=== PATIENT | male | born 1985 | race Caucasian/White ===

== ENCOUNTER 2019-09-30 21:43 | Emergency (ER) | payer OTHER ==
[~2019-09-30] VITALS: Ht 188 cm; Wt 142.9 kg
[~2019-09-30 21:43] MED LIST: HYDHCL25 PO; Prednisone20 MG PO
[2019-09-30 22:41] LABS: BASOPHILS ABSOLUTE AUTO 0.03 K/mm3 (0.00-0.23); BASOPHILS PERCENT AUTO 0 % (0-2); EOSINOPHILS ABSOLUTE AUTO 0.28 K/mm3 (0.00-0.68); EOSINOPHILS PERCENT AUTO 3 % (0-6); Hematocrit 44.9 % (37.0-53.0); Hemoglobin 14.8 g/dL (13.5-17.5); IMMATURE GRAN ABSOLUTE AUTO 0.05 K/mm3 (0.00-0.10); IMMATURE GRAN PERCENT AUTO 1 % (0-1); LYMPHOCYTES ABSOLUTE AUTO 3.01 K/mm3 (0.84-5.20); LYMPHOCYTES PERCENT AUTO 35 % (21-46); MONOCYTES ABSOLUTE AUTO 0.77 K/mm3 (0.16-1.47); MONOCYTES PERCENT AUTO 9 % (4-13); Mean Corpuscular HGB 29.8 pg (26.0-34.0); Mean Corpuscular Volume 91 fL (80-100); Mean Platelet Volume 9.5 fL (9.1-12.4); NEUTROPHILS ABSOLUTE AUTO 4.53 K/mm3 (1.96-9.15); NEUTROPHILS PERCENT AUTO 52 % (41-73); Platelet Count 328 K/mm3 (150-400); RDW Coefficient Variation 11.8 % (11.7-14.2); RDW Standard Deviation 39.2 fL (35.1-46.3); Red Blood Cell Count 4.96 M/mm3 (4.30-5.90); White Blood Cell Count 8.67 K/mm3 (4.00-11.30)
[2019-09-30 22:59] LABS: Alanine Aminotransfer (ALT/SGP 50 U/L (12-78); Albumin, Blood 3.9 g/dL (3.4-5.0); Alk Phos 70 U/L (50-136); Anion Gap 6 mmol/L (6-16); Aspartate Aminotrans (AST/SGOT 20 U/L (12-37); Bilirubin, Total 0.2 mg/dL (0.1-1.0); Blood Urea Nitrogen 16 mg/dL (8-24); Bun/Creatinine Ratio 21.9 (12.0-20.0); CO2, Blood 27 mmol/L (21-32); Calcium, Blood 8.8 mg/dL (8.5-10.1); Chloride, Blood 108 mmol/L (98-108); Creatinine, Blood 0.73 mg/dL (0.60-1.20); Globulin, Blood 3.9 g/dL (2.2-4.0); Glomerular Filtration Rate >60 (60-); Glucose, Blood 169 mg/dL (70-99); Sodium, Blood 141 mmol/L (136-145); Total Protein, Blood 7.8 g/dL (6.4-8.2)
[2019-09-30] MEDS ORDERED: ARMODAFINIL250 MG PO (23:04)
[2019-10-01] MEDS ORDERED: Zithromax250 MG PO (09:34)
== END 2019-10-01 01:29 | disposition home or self-care (01) ==
LOC: ER 21:43
PROVIDERS: Emergency Medicine
DX: K42.9 Umbilical hernia without obstruction or gangrene (principal); Z88.5 Allergy status to narcotic agent; Z79.899 Other long term (current) drug therapy
CPT/HCPCS: 36415; 74176; 80053; 85025; 96361; 96374; 96375; 99284-25; A9270; A9270-GY; J2405; J3010; J7030

== ENCOUNTER 2022-06-20 06:00 | Day surgery (SDC) | payer OTHER ==
[~2022-06-20] VITALS: Ht 188 cm; Wt 126.7 kg
[~2022-06-20 06:00] MED LIST changes: +ARMODAFINIL250 MG PO; +Flonase 0.05% N16 GM; +Zithromax250 MG PO
--- NOTE | 2022-06-20 07:29 | NUR ---
PT BLOOD SUGAR ELEVATED AND AFTER DISCUSSION WITH DR. CUELLAR PT AND HIS HAVE DECIDED TO POSTPONE SURGERGY. IV DC'D INTACT. PT AMB OUT OF DEPARTMENT WITH HIS . NO ACUTE DISTRESS.
== END 2022-06-20 23:04 | disposition home or self-care (01) ==
LOC: ORSCMMR 06:00 → ORD 08:15 → ORSCMMR 08:15
DX: K42.9 Umbilical hernia without obstruction or gangrene (principal); Z53.9 Procedure and treatment not carried out, unspecified reason
CPT/HCPCS: 82947; J0690; J2250; J2704; J2795; J3010; J7120

== ENCOUNTER 2022-10-31 05:53 | Day surgery (SDC) | payer OTHER ==
[~2022-10-31] VITALS: Ht 188 cm; Wt 127.3 kg
[~2022-10-31 05:53] MED LIST changes: +GLIP5 PO; +INSULANI SC
[2022-10-31] MEDS ORDERED: CYMBALTA20 M1 PO (06:19)
[2022-10-31 07:38] LABS: Anion Gap Unable to Calculate mmol/L (6-16); Blood Urea Nitrogen 14 mg/dL (8-24); Bun/Creatinine Ratio 17.9 (12.0-20.0); CO2, Blood 28 mmol/L (21-32); Calcium, Blood 8.7 mg/dL (8.5-10.1); Chloride, Blood 111 mmol/L (98-108); Creatinine, Blood 0.78 mg/dL (0.60-1.20); Glomerular Filtration Rate 119 (60-); Glucose, Blood 132 mg/dL (70-99); Potassium, Blood 4.1 mmol/L (3.5-5.5); Sodium, Blood 138 mmol/L (136-145)
--- NOTE | 2022-10-31 09:38 | NUR ---
TO STEP RECIEVED REPORT AND PATIENT DRSSING ON ABDOMEN INTACT.
--- NOTE | 2022-10-31 09:49 | NUR ---
ASSUMED CARE DENIES PAIN OR NAUSEA DRSG CDI TOLERATING PO JOKING WITH STAFF
--- NOTE | 2022-10-31 10:36 | NUR ---
Patient up to Ambulate independently. Gait steady. Discharge instructions reviewed with patient. Patient verbalizes understanding. Copy given to patient to take home. Dressing to procedure site clean, dry, intact with no visible drainage, swelling, erythema or bruising noted. Discharged via wheelchair to private car for ride home.IV REMOVED CATH INTACT SITE CLEAR
== END 2022-10-31 22:46 | disposition home or self-care (01) ==
LOC: ORSCMMR 05:53 → ORD 07:30 → ORSCMMR 22:46
PROVIDERS: Anesthesiology; Surgery
PROC: 0WUF0JZ Supplement Abdominal Wall with Synthetic Substitute, Open Approach (ICD-10-PCS; principal; 2022-10-31 07:30)
DX: K42.9 Umbilical hernia without obstruction or gangrene (principal); G47.33 Obstructive sleep apnea (adult) (pediatric); E11.9 Type 2 diabetes mellitus without complications; E66.9 Obesity, unspecified; Z68.36 Body mass index [BMI] 36.0-36.9, adult; Z79.899 Other long term (current) drug therapy
CPT/HCPCS: 80048; 82947; 93005; 93010; A9270; C1781; J0690; J1100; J1170; J1885; J2250; J2405; J2704; J2795; J3010; J7120